=== PATIENT | male | born 1955 | race Caucasian/White ===

== ENCOUNTER 2021-03-11 10:22 | Emergency (ER) | payer MEDICARE, MEDICAID ==
[~2021-03-11] VITALS: Ht 182.9 cm; Wt 88.0 kg
--- NOTE | 2021-03-11 10:26 | NUR ---
geetha morning he began having achey, febrile, weakness. he went to work [employer] and by the time he got home friday he was feeling horribly. has also been feeling badly. he is vaccinated.
[2021-03-11] MEDS ORDERED: KETOROLAC 30 MG/1 ML ONE (10:40)
[2021-03-11] MEDS ORDERED: KETOROLAC 30 MG/1 ML IVPush ONE (11:00)
[2021-03-11] MEDS ORDERED: PLEASE ENTER ALLERGIES MC SCH (11:00)
[2021-03-11] MEDS ORDERED: SODIUM CHLORIDE 0.9% 1,000ML IVBOLUS ONE (11:00)
[2021-03-11 11:06] LABS: BASOPHILS % (AUTO) 0 % (0-1); EOSINOPHILS % (AUTO) 0 % (1-7); LYMPHOCYTES % (AUTO) 10 % (22-44); MEAN CORPUSCULAR HGB CONC 33.7 g/dL (33.2-36.2); MEAN PLATELET VOLUME 9.2 fL (7.4-10.4); MONOCYTES % (AUTO) 12 % (2-9); NEUTROPHILS % (AUTO) 78 % (42-75); PLATELET COUNT 144 x10^3/uL (130-400); RED BLOOD COUNT 5.38 x10^6/uL (4.38-5.82); RED CELL DISTRIBUTION WIDTH 13.2 % (9.4-14.8)
[2021-03-11 11:14] LABS: ALBUMIN 3.8 g/dL (3.4-5.0); ANION GAP 7 mmol/L (5-15); CALCIUM 8.6 mg/dL (8.5-10.1); CHLORIDE 103 mmol/L (98-107)
[2021-03-11 11:18] LABS: ALANINE AMINOTRANSFERASE 21 U/L (12-78); ALKALINE PHOSPHATASE 79 U/L (45-117); BILIRUBIN,TOTAL 0.7 mg/dL (0.2-1.0); TOTAL PROTEIN 7.7 g/dL (6.4-8.2)
--- NOTE | 2021-03-11 11:27 | NUR ---
patient walked and is stong on feet. he still feels congested and some weakness but feeling improved.
[2021-03-11 12:09] VITALS: BP 128/78
== END 2021-03-11 12:35 | disposition home or self-care (01) ==
LOC: ED 11:13
DX: U07.1 COVID-19 (principal); R06.02 Shortness of breath; R42 Dizziness and giddiness; R53.1 Weakness
CPT/HCPCS: 36415; 71045; 80053; 83605; 85025; 93005; 96361; 96374; 99285; J1885; J7030; U0003; U0005